=== PATIENT | male | born 1990 | race Caucasian/White ===

== ENCOUNTER 2016-10-22 21:13 | Emergency (ER) | payer SELFPAY ==
[~2016-10-22 21:13] MED LIST: AMOXICILLIN500 M2 PO; AMOXICILLIN500 MG PO; AUGMENTIN 875 M1 TAB PO; CYCLOBENZAPRINE10 MG PO; MOTRIN800 MG PO; Motrin,Rufen800 MG PO; NO DAILY MEDS; NORCO 5-325 TA1 EACH PO; PENICILLIN VK500 MG PO; VICO10300 PO; VOLTAREN50 M1 PO; ZOFRAN4 MG PO
[2016-10-22] MEDS ORDERED: OMNICEF300 MG PO (21:53)
== END 2016-10-22 21:49 | disposition home or self-care (01) ==
LOC: ED 21:13
DX: H66.91 Otitis media, unspecified, right ear (principal); F17.200 Nicotine dependence, unspecified, uncomplicated

== ENCOUNTER 2016-11-30 22:05 | Emergency (ER) | payer SELFPAY ==
[~2016-11-30] VITALS: Ht 175.2 cm; Wt 52.2 kg
[~2016-11-30 22:05] MED LIST changes: +OMNICEF300 MG PO
[2016-11-30] MEDS ORDERED: CYCLOBENZAPRINE10 MG PO (23:56)
[2016-11-30] MEDS ORDERED: PREDNISONE10 MG PO (23:56)
== END 2016-12-01 00:08 | disposition home or self-care (01) ==
LOC: ED 22:05
DX: S39.012A Strain of muscle, fascia and tendon of lower back, initial encounter (principal); F17.200 Nicotine dependence, unspecified, uncomplicated; X50.0XXA Overexertion from strenuous movement or load, initial encounter; Y93.89 Activity, other specified; Y92.89 Other specified places as the place of occurrence of the external cause; Y99.9 Unspecified external cause status

== ENCOUNTER 2018-09-16 11:45 | Emergency (ER) | payer SELFPAY ==
[~2018-09-16] VITALS: Ht 175.2 cm; Wt 52.2 kg
[~2018-09-16 11:45] MED LIST changes: +PREDNISONE10 MG PO
[2018-09-16] MEDS ORDERED: AMOXICILLIN875 MG PO (12:32)
[2019-01-19] MEDS ORDERED: ZITHROMAX250 MG PO (09:24)
[2019-01-19] MEDS ORDERED: PREDNISONE50 MG PO (09:24)
== END 2018-09-16 12:56 | disposition home or self-care (01) ==
LOC: ED 11:45
DX: J02.9 Acute pharyngitis, unspecified (principal); R13.10 Dysphagia, unspecified; R05 Cough; F17.200 Nicotine dependence, unspecified, uncomplicated

== ENCOUNTER 2019-05-05 11:46 | Emergency (ER) | payer SELFPAY ==
[~2019-05-05] VITALS: Ht 175.2 cm; Wt 52.2 kg
[~2019-05-05 11:46] MED LIST changes: +AMOXICILLIN875 MG PO; +PREDNISONE50 MG PO; +ZITHROMAX250 MG PO
== END 2019-05-05 12:15 | disposition left against medical advice (07) ==
LOC: ED 11:46
DX: R05 Cough (principal); R09.3 Abnormal sputum; Z53.21 Procedure and treatment not carried out due to patient leaving prior to being seen by health care provider

== ENCOUNTER 2019-05-21 17:26 | Emergency (ER) | payer SELFPAY ==
[~2019-05-21] VITALS: Ht 175.2 cm; Wt 52.2 kg
[2019-05-21 17:44] LABS: BASO % 0.4 % (0.0-1.0); EOS # 0.2 10*3/uL (0.0-0.4); EOS % 2.1 % (1.0-4.0); HEMATOCRIT 43.5 % (42.0-52.0); HEMOGLOBIN 14.2 g/dl (14.0-18.0); LYMPH # 2.2 10*3/uL (1.3-4.4); LYMPH % 29.8 % (27.0-41.0); MEAN CELL VOLUME 94.8 fl (80.0-94.0); MEAN CORPUSCULAR HGB 30.9 pg (27.0-31.0); MEAN CORPUSCULAR HGB CONC 32.6 g/dl (33.0-37.0); MEAN PLATELET VOLUME 10.2 fl (9.6-12.3); MONO # 0.5 10*3/uL (0.1-1.0); MONO % 6.2 % (3.0-9.0); NEUT # 4.4 10*3/uL (2.3-7.9); NEUT % 61.4 % (47.0-73.0); PLATELET COUNT AUTOMATED 253 10*3/uL (130-400); RED BLOOD COUNT 4.59 10*6/uL (4.50-5.90); RED CELL DISTRI WIDTH 14.6 % (0-14.5); WHITE BLOOD COUNT 7.2 10*3/uL (4.8-10.8)
[2019-05-21 17:59] LABS: ALBUMIN 3.9 gm/dl (3.1-4.5); ALKALINE PHOSPHATASE 94 U/L (45-117); BUN 11 mg/dl (7-24); CHLORIDE 109 mmol/L (98-107); CREATININE 0.84 mg/dL (0.70-1.30); LIPASE 56 U/L (73-393); SGOT/AST 9 IU/L (3-35); SGPT/ALT 23 U/L (12-78); SODIUM 143 mmol/L (136-145); TOTAL PROTEIN 7.7 gm/dL (6.4-8.2)
[2019-05-21 18:01] LABS: BILIRUBIN NEGATIVE (NEGATIVE); BLOOD NEGATIVE (NEGATIVE); CLARITY CLOUDY (CLEAR); COLOR YELLOW (YELLOW); GLUCOSE NEGATIVE (NEGATIVE); KETONE NEGATIVE (NEGATIVE); LEUKO ESTERASE NEGATIVE (NEGATIVE); NITRITE NEGATIVE (NEGATIVE); PH 7.5 (5.0-9.0)
[2019-05-21 18:06] LABS: BACTERIA 2+
[2019-05-21] MEDS ORDERED: ZOFRAN4 MG PO (19:21)
== END 2019-05-21 19:35 | disposition home or self-care (01) ==
LOC: ED 17:26
PROVIDERS: Nurse Practitioner Family
DX: A08.4 Viral intestinal infection, unspecified (principal); Z79.899 Other long term (current) drug therapy

== ENCOUNTER 2020-01-26 14:21 | Emergency (ER) | payer SELFPAY ==
[~2020-01-26] VITALS: Ht 175.2 cm; Wt 52.2 kg
[2020-01-26] MEDS ORDERED: AMOXICILLIN500 M2 PO (15:40)
[2020-01-26] MEDS ORDERED: NAPROSYN500 MG PO (15:40)
== END 2020-01-26 14:59 | disposition home or self-care (01) ==
LOC: ED 14:21
DX: K08.89 Other specified disorders of teeth and supporting structures (principal); F17.200 Nicotine dependence, unspecified, uncomplicated; Z79.899 Other long term (current) drug therapy

== ENCOUNTER 2021-02-17 12:27 | Emergency (ER) | payer SELFPAY ==
[~2021-02-17] VITALS: Ht 172.7 cm; Wt 52.2 kg
[~2021-02-17 12:27] MED LIST changes: +NAPROSYN500 MG PO
== END 2021-02-17 12:38 | disposition left against medical advice (07) ==
LOC: ED 12:27
DX: S63.601A Unspecified sprain of right thumb, initial encounter (principal); Z79.899 Other long term (current) drug therapy; Z79.2 Long term (current) use of antibiotics; W22.01XA Walked into wall, initial encounter; Y93.89 Activity, other specified; Y92.89 Other specified places as the place of occurrence of the external cause; Y99.8 Other external cause status

== ENCOUNTER 2023-01-12 16:43 | Emergency (ER) | payer SELFPAY ==
[~2023-01-12] VITALS: Ht 177.8 cm; Wt 52.2 kg
[2023-01-12] MEDS ORDERED: AMOX-CLAV 875-1 EACH PO (17:18)
[2023-01-12] MEDS ORDERED: IBU800 MG PO (17:18)
== END 2023-01-12 17:58 | disposition home or self-care (01) ==
LOC: ED 16:43
DX: K04.7 Periapical abscess without sinus (principal); K03.81 Cracked tooth; F17.200 Nicotine dependence, unspecified, uncomplicated; Z79.2 Long term (current) use of antibiotics; Z79.899 Other long term (current) drug therapy

== ENCOUNTER 2023-02-01 15:57 | Emergency (ER) | payer OTHER ==
[~2023-02-01] VITALS: Ht 180.3 cm; Wt 52.2 kg
[~2023-02-01 15:57] MED LIST changes: +AMOX-CLAV 875-1 EACH PO; +IBU800 MG PO
== END 2023-02-01 18:03 | disposition home or self-care (01) ==
LOC: ED 15:57
DX: S16.1XXA Strain of muscle, fascia and tendon at neck level, initial encounter (principal); S09.90XA Unspecified injury of head, initial encounter; M25.462 Effusion, left knee; Z79.899 Other long term (current) drug therapy; Z79.2 Long term (current) use of antibiotics; V43.52XA Car driver injured in collision with other type car in traffic accident, initial encounter; Y93.I9 Activity, other involving external motion; Y92.488 Other paved roadways as the place of occurrence of the external cause; Y99.8 Other external cause status

== ENCOUNTER 2023-03-07 17:40 | Emergency (ER) | payer SELFPAY ==
[~2023-03-07] VITALS: Ht 177.8 cm; Wt 52.2 kg
[2023-03-07] MEDS ORDERED: CEPHALEXIN500 M1 PO (19:12)
== END 2023-03-07 19:28 | disposition home or self-care (01) ==
LOC: ED 17:40
DX: S61.012A Laceration without foreign body of left thumb without damage to nail, initial encounter (principal); W26.8XXA Contact with other sharp object(s), not elsewhere classified, initial encounter; Y93.89 Activity, other specified; Y92.89 Other specified places as the place of occurrence of the external cause; Y99.8 Other external cause status

== ENCOUNTER 2023-03-19 14:59 | Emergency (ER) | payer SELFPAY ==
[~2023-03-19] VITALS: Wt 52.2 kg
[~2023-03-19 14:59] MED LIST changes: +CEPHALEXIN500 M1 PO
== END 2023-03-19 17:53 | disposition home or self-care (01) ==
LOC: ED 14:59
DX: T63.441A Toxic effect of venom of bees, accidental (unintentional), initial encounter (principal); Z87.891 Personal history of nicotine dependence; Y92.89 Other specified places as the place of occurrence of the external cause

== ENCOUNTER 2023-05-30 14:47 | Emergency (ER) | payer SELFPAY ==
[~2023-05-30] VITALS: Wt 52.2 kg
== END 2023-05-30 17:50 | disposition home or self-care (01) ==
LOC: ED 14:47
DX: S20.211A Contusion of right front wall of thorax, initial encounter (principal); Y09 Assault by unspecified means; Y93.89 Activity, other specified; Y92.89 Other specified places as the place of occurrence of the external cause; Y99.8 Other external cause status

== ENCOUNTER 2023-11-05 11:55 | Emergency (ER) | payer SELFPAY | END 2023-11-05 12:09 | disposition left against medical advice (07) | LOC: ED 11:55 | DX: F41.9 Anxiety disorder, unspecified (principal); Z53.21 Procedure and treatment not carried out due to patient leaving prior to being seen by health care provider ==

== ENCOUNTER 2025-04-11 12:22 | Emergency (ER) | payer OTHER ==
[~2025-04-11] VITALS: Ht 175.2 cm; Wt 52.2 kg
[2025-04-11] MEDS ORDERED: Albuterol Sulf/Ipratropium 3 ML VIAL NEB ONE (13:05)
[2025-04-11 13:18] LABS: BASO # 0.0 10*3/uL (0.0-0.1); BASO % 0.3 % (0.0-1.0); EOS # 0.2 10*3/uL (0.0-0.4); EOS % 3.0 % (1.0-4.0); MEAN CELL VOLUME 93.0 fl (80.0-94.0); MEAN CORPUSCULAR HGB 30.5 pg (27.0-31.0); MEAN PLATELET VOLUME 10.7 fl (9.6-12.3); MONO # 0.4 10*3/uL (0.1-1.0); MONO % 5.7 % (3.0-9.0); NEUT # 4.8 10*3/uL (2.3-7.9); NEUT % 68.8 % (47.0-73.0); NUCLEATED RED BLOOD CELL 0.0 % (0.0-0.0); NUCLEATED RED BLOOD CELL 0.0 10*3/uL (0.0-0.0); PLATELET COUNT AUTOMATED 161 10*3/uL (130-400); RED CELL DISTRI WIDTH 13.4 % (0-14.5)
[2025-04-11 13:36] LABS: BUN 11 mg/dl (9-23)
[2025-04-11] MEDS ORDERED: PREDNISONE50 MG PO (14:27)
[2025-04-11] MEDS ORDERED: ZITHROMAX250 MG PO (14:27)
[2025-04-11] MEDS ORDERED: AZITHROMYCIN 250 MG TAB PO ONE (14:30)
== END 2025-04-11 14:45 | disposition home or self-care (01) ==
LOC: ED 12:22
PROVIDERS: Nurse Practitioner Family
DX: J98.4 Other disorders of lung (principal); J45.909 Unspecified asthma, uncomplicated; Z91.030 Bee allergy status; Z20.822 Contact with and (suspected) exposure to COVID-19